=== PATIENT | male | born 1945 | race Caucasian/White ===

== ENCOUNTER 2016-11-19 10:09 | Observation (INO) | payer OTHER ==
[~2016-11-19] VITALS: Ht 152.4 cm; Wt 79.8 kg
[~2016-11-19 10:09] MED LIST: ASPIR-TRIN325 M1 PO; ATORVASTATIN CA80 MG PO; CLOPIDOGREL75 MG PO; LISINOPRIL20 MG PO; Lopressor PO; METFORMIN HCL500 MG PO; METOPROLOL SUCC50 MG PO; NIACIN 500 MG1 EACH PO; SENNA-TIME S T1 EACH PO; ZESTORETIC 10-1 EAC1 PO; Zocor PO
[2016-11-19 10:47] LABS: EOSINOPHIL (%) 0.3 % (0-5); HEMATOCRIT 41.4 % (38.0-50.0); IMMATURE GRANULOCYTE (%) 0.3 % (0.0-0.7); INSTRUMENT ABS NEUTROPHIL CT 9.1 K/uL; LYMPHOCYTE COUNT 0.9 K/uL (1.0-2.8); MCH 29.5 PG (29.0-34.0); MCHC 34.1 G/DL (30.0-36.0); MCV 86.6 FL (86-99); MEAN PLAT.VOLUME 11.3 uM^3 (9.0-12.4); MONOCYTE (%) 5.4 % (3-12); MONOCYTE COUNT 0.6 K/uL (0-0.8); NEUTROPHIL (%) 85.6 % (45-76); NEUTROPHIL COUNT 9.1 K/uL (1.8-6.4); PLATELET COUNT 228 K/uL (156-360); RBC DIS.WIDTH-CV 13.3 % (11.8-14.6); RBC DIS.WIDTH-SD 41.8 % (39-53); RED BLOOD COUNT 4.78 M/uL (4.00-5.50); WHITE BLOOD COUNT 10.6 K/uL (4.1-10.2)
[2016-11-19 10:53] LABS: PROTHROMBIN TIME 10.9 SEC (10.2-12.9)
[2016-11-19 10:55] LABS: PTT 25.4 SEC (25-37)
[2016-11-19 11:01] LABS: CHLORIDE 106 mEq/L (99-109); POTASSIUM 3.8 mEq/L (3.7-5.4); SODIUM 138 mEq/L (136-147)
[2016-11-19 11:03] LABS: GLUCOSE 158 mg/dL (70-99)
[2016-11-19 11:04] LABS: ANION GAP 9 MEQ/L (2-14)
[2016-11-19 11:07] LABS: GFR ESTIMATE (CALCULATED) > 59 mL/min/
[2016-11-19 11:08] LABS: UREA NITROGEN (BUN) 27 mg/dL (9-23)
[2016-11-19 11:11] LABS: TROP-I INTERPRETATION NEGATIVE; TROPONIN-I < 0.01 ng/mL (0.0-0.30)
[2016-11-19] MEDS ORDERED: PLAVIX75 MG PO (13:15)
[2016-11-19] MEDS ORDERED: TOPROL XL50 MG PO (13:16)
[2016-11-19] MEDS ORDERED: LITE COAT ASPI325 M1 PO (13:16)
[2016-11-19] MEDS ORDERED: LIPITOR80 MG PO (13:16)
[2016-11-19] MEDS ORDERED: ZESTORETIC 20-1 EAC1 PO (13:17)
[2016-11-19] MEDS ORDERED: GLUCOPHAGE500 MG PO (13:17)
[2016-11-19] MEDS ORDERED: FLOMAX0.4 MG PO (13:17)
[2016-11-19] MEDS ORDERED: TYLENOL EXTRA500 MG PO (13:18)
[2016-11-19] MEDS ORDERED: MICRO-K8 ME2 PO (13:18)
[2016-11-19 14:05] LABS: HDL CHOLESTEROL 42 MG/DL (Desirable>=40); LDL CHOLESTEROL 71 mg/dL (Desirable<100); NON-HDL CHOLESTEROL 88 mg/dL (Desirable<160); TOTAL CHOLESTEROL 130 mg/dL (Desirable<200); TRIGLYCERIDES 86 MG/DL (Normal: <150)
[2016-11-19 14:44] LABS: Estimated Average Glucose 128 mg/dL (70-123); HEMOGLOBIN A1c (GLYCOHEMOGLOB) 6.1 % HGB (Below 5.7)
[2016-11-19 15:43] VITALS: BP 120/60
[2016-11-19 17:28] VITALS: BP 102/69; BP 104/70
[2016-11-19 20:00] VITALS: BP 108/65
[2016-11-19 22:42] LABS: POINT-OF-CARE METER ID UU13113700
[2016-11-19 23:39] VITALS: BP 110/53
[2016-11-20 03:29] VITALS: BP 109/67
[2016-11-20 05:51] LABS: EOSINOPHIL (%) 2.2 % (0-5); EOSINOPHIL COUNT 0.1 K/uL (0-0.3); HEMATOCRIT 36.4 % (38.0-50.0); IMMATURE GRANULOCYTE (%) 0.3 % (0.0-0.7); INSTRUMENT ABS NEUTROPHIL CT 4.4 K/uL; LYMPHOCYTE COUNT 1.4 K/uL (1.0-2.8); MCH 29.7 PG (29.0-34.0); MCHC 34.1 G/DL (30.0-36.0); MCV 87.1 FL (86-99); MEAN PLAT.VOLUME 11.5 uM^3 (9.0-12.4); MONOCYTE (%) 8.3 % (3-12); MONOCYTE COUNT 0.5 K/uL (0-0.8); NEUTROPHIL (%) 68.1 % (45-76); NEUTROPHIL COUNT 4.4 K/uL (1.8-6.4); PLATELET COUNT 207 K/uL (156-360); RBC DIS.WIDTH-CV 13.5 % (11.8-14.6); RBC DIS.WIDTH-SD 42.5 % (39-53); RED BLOOD COUNT 4.18 M/uL (4.00-5.50); WHITE BLOOD COUNT 6.5 K/uL (4.1-10.2)
[2016-11-20 07:51] VITALS: BP 119/58
[2016-11-20 10:51] VITALS: BP 102/62
[2016-11-20 12:13] LABS: POINT-OF-CARE METER ID UU13113700
== END 2016-11-20 13:43 | disposition home or self-care (01) ==
LOC: EME 10:09 → 5WEST 13:01 → EDOF 13:01 → ENRESERV 13:02 → 5WEST 15:28
PROVIDERS: Emergency Medicine; Hospitalist
DX: R55 Syncope and collapse (principal); S00.81XA Abrasion of other part of head, initial encounter; Z86.73 Personal history of transient ischemic attack (TIA), and cerebral infarction without residual deficits; Z82.3 Family history of stroke; I10 Essential (primary) hypertension; E78.5 Hyperlipidemia, unspecified; I25.10 Atherosclerotic heart disease of native coronary artery without angina pectoris; Z95.1 Presence of aortocoronary bypass graft; I35.1 Nonrheumatic aortic (valve) insufficiency; E11.9 Type 2 diabetes mellitus without complications; I25.2 Old myocardial infarction; Z87.891 Personal history of nicotine dependence; Z79.82 Long term (current) use of aspirin; Z79.84 Long term (current) use of oral hypoglycemic drugs
CPT/HCPCS: 70450; 70486; 70551; 71010; 80048; 80061; 82948; 83036; 84484; 85025; 85610; 85730; 93005; 93306; 93880; 95819; 99281; 99285; G0378; J1650; J7030